=== PATIENT | male | born 1955 | race Two or more races ===

== ENCOUNTER 2021-11-29 23:21 | Inpatient (IN) | payer MEDICARE, OTHER ==
[~2021-11-29] VITALS: Ht 172.7 cm; Wt 72.6 kg
[2021-11-30 03:00] VITALS: BP 133/79
--- NOTE | 2021-11-30 03:00 | NUR ---
RN NOTE ADMITTED A 66 YEAR OLD MALE, LATERAL TRANSFER FROM [facility]. PATIENT ARRIVED VIA GURNEY. PATIENT IS ALERT AND ORIENTED X1, KNOWS ONLY NAME. BREATHING EVEN AND UNLABORED. TOLERATING ROOM AIR. NO SOB NOTED. NO COUGH/CONGESTION. DENIES CHEST PAIN. SKIN WARM AND DRY. NOTED WITH LEFT EYE ENUCLEATION. NOTED WITH LEFT AC PERIPHERAL IV 20 G. PATENT, NO INFILTRATION NOTED. SKIN ASSESSMENT DONE. PHOTOS TAKEN AND PLACED IN CHART. BED LOW, IN LOCKED POSITION. CALL LIGHT WITHIN REACH.
[2021-11-30] MEDS ORDERED: ONDANSETRON HCL/PF 4 MG/2 ML VIAL IVP PRN (04:30)
[2021-11-30] MEDS ORDERED: hydrALAZINE HCL IV 20 MG VIAL IV PRN (04:30)
[2021-11-30] MEDS ORDERED: ACETAMINOPHEN 325 MG TABLET PO PRN (04:30)
[2021-11-30] MEDS ORDERED: MAG HYDROX/AL HYDROX/SIMETH 30 ML UDC PO PRN (04:30)
[2021-11-30] MEDS ORDERED: MAGNESIUM HYDROXIDE 30 ML UDC PO PRN (04:30)
[2021-11-30] MEDS ORDERED: LORAZEPAM INJ 2 MG/ML VIAL IV PRN (04:30)
[2021-11-30] MEDS ORDERED: IV NS 0.9% 1,000 ML IV PRN (04:30)
[2021-11-30] MEDS ORDERED: Z GUARD REMEDY 4 OZ OINT TP PRN (04:30)
[2021-11-30 05:22] LABS: BASOPHILS # (AUTO) 0.1 K/uL (0.0-0.2); BASOPHILS % (AUTO) 0.5 % (0.0-2.0); EOSINOPHILS % (AUTO) 0.3 % (0.0-6.0); HEMATOCRIT 37 % (39-51); HEMOGLOBIN 12.6 g/dL (13.5-17.5); LYMPHOCYTES # (AUTO) 0.9 K/uL (0.8-4.8); LYMPHOCYTES % (AUTO) 8.4 % (20.0-44.0); MEAN CORPUSCULAR HGB CONC 34 g/dl (31.0-36.0); MEAN CORPUSCULAR VOLUME 94 fL (80-96); MONOCYTES # (AUTO) 0.3 K/uL (0.1-1.30); MONOCYTES % (AUTO) 2.9 % (2.0-12.0); NEUTROPHILS % (AUTO) 87.9 % (43.0-81.0); PLATELET COUNT (AUTO) 246 K/uL (150-450); RED BLOOD CELL COUNT(AUTO) 3.98 MIL/uL (4.5-6.0); WHITE BLOOD COUNT (AUTO) 10.2 K/uL (4.3-11.0)
[2021-11-30 06:06] LABS: ALANINE AMINOTRANSFERASE 40 U/L (12-78); ALBUMIN 4.2 g/dL (3.4-5.0); ALKALINE PHOSPHATASE 52 U/L (46-116); ASPARTATE AMINOTRANSFERASE 71 U/L (15-37); BILIRUBIN,TOTAL 1.3 mg/dL (0.2-1.0); CALCIUM, SERUM 9.1 mg/dL (8.5-10.1); CARBON DIOXIDE 28 mmol/L (21-32); CHLORIDE 100 mmol/L (98-107); CREATININE 1.6 mg/dL (0.6-1.3); GLUCOSE 156 mg/dL (74-106); MAGNESIUM 2.4 mg/dL (1.8-2.4); PHOSPHORUS 2.7 mg/dL (2.5-4.9); POTASSIUM 3.2 mmol/L (3.5-5.1); SODIUM SERUM 137 mmol/L (136-145); TOTAL PROTEIN, SERUM 7.8 g/dL (6.4-8.2); UREA NITROGEN, BLOOD 20 mg/dL (7-18)
[2021-11-30 06:14] LABS: THYROID STIMULATING HORMONE 236.957 uIU/mL (0.358-3.74)
[2021-11-30 06:18] LABS: CREATINE KINASE, TOTAL > 1000 U/L (39-308)
[2021-11-30] MEDS ORDERED: LEVETIRACETAM (500MG) 500 MG/5 ML VIAL IV ONE (06:26)
[2021-11-30] MEDS: LEVETIRACETAM (500MG) 500 MG in IV NS 0.9% 100 ML IV SCH ×2 (06:37→20:47)
--- NOTE | 2021-11-30 06:50 | NUR ---
RN NOTE TRANSFER REPORT GIVEN TO MICHAELA MEDLEY. PATIENT GOING TO ROOM 315-1. PATIENT TRANSFERRED, ACLS PROTOCOL OBSERVED.
[2021-11-30 08:00] VITALS: BP 127/85
[2021-11-30] MEDS ORDERED: LEVE250T4 PO (08:02)
[2021-11-30] MEDS ORDERED: CARV12.52 PO (08:02)
[2021-11-30] MEDS ORDERED: ASPI-1498 PO (08:02)
[2021-11-30] MEDS ORDERED: ATOR40TA PO (08:02)
[2021-11-30] MEDS ORDERED: LEVO125T8 PO (08:02)
[2021-11-30] MEDS ORDERED: LOSA100T31 PO (08:02)
[2021-11-30] MEDS ORDERED: LEVETIRACETAM (500MG) 500 MG in IV NS 0.9% 100 ML IV SCH (09:00)
[2021-11-30] MEDS: PANTOPRAZOLE 40 MG VIAL IV SCH (11:29)
[2021-11-30] MEDS: HEPARIN SODIUM, PORCINE 5000 UNITS/1 ML VIAL SQ SCH ×2 (11:30→20:57)
[2021-11-30] MEDS: POTASSIUM CL. PREMIX PERIPHER. 50 ML IV SCH ×3 (11:31→14:57)
[2021-11-30 12:00] VITALS: BP 131/94
[2021-11-30 16:00] VITALS: BP 133/98
[2021-11-30] MEDS: IV D5/0.45 NACL 1,000 ML IV SCH (17:32)
--- NOTE | 2021-11-30 18:00 | NUR ---
ALERT AND ORIENTED X4.SKIN WARM AND DRY.REORIENTED SEVERAL TIMES,YELLS OUT.AT ONE POINT ASSISTED TO BATHRM. THEN GETTING PT. BACK TO BED REFUSING RE-APPLICATION OF WRIST RESTRAINTS.RN CALLED SECURITY PT. LASHING AT NURSE.FAMILY CALLING EARLIER STATING PT. WITH HX OF DRUG ABUSE.DR. JEFF INFORMED.DUE TO YELLING TRANSFERRED TO ANOTHER R.309-1.POTASSIUM IV REPLACEMENT GIVENK LEVEL 3.2.
[2021-11-30 19:00] VITALS: BP 134/93
--- NOTE | 2021-11-30 19:30 | NUR ---
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
[2021-11-30 20:00] VITALS: BP 134/93
--- NOTE | 2021-11-30 20:30 | NUR ---
ICT SYSTEMS TEST ENGINEER NOTES GOT OUT OF BED,ASSISTED TO THE TOILET.DAUGHTER AT BEDSIDE.
--- NOTE | 2021-11-30 21:00 | NUR ---
LEAD PHP DEVELOPER NOTES DUE HEBER ROGERS,INFUSING VIA IV PUMP ON LEFT AC.
[2021-12-01] VITALS: BP 131/85
[2021-12-01 00:05] VITALS: BP 131/85
--- NOTE | 2021-12-01 01:00 | NUR ---
HAZMAT TRUCK DRIVER NOTES SLEEPING THIS TIME,KEPT WARM AND COMFORTABLE.
[2021-12-01] MEDS: IV D5/0.45 NACL 1,000 ML IV SCH ×3 (03:41→17:19)
[2021-12-01 04:00] VITALS: BP 150/97
--- NOTE | 2021-12-01 06:36 | NUR ---
ELASTIC ATTACHER ZIGZAG NOTES LAYING COMFORTABLY ON BED,CALM AND QUIET,COOPERATIVE AND THANKFUL FOR NURSE CARE.IVF INFUSING WELL ON LEFT AC SALINE LOCK,RESTRAINTS IN USED FOR SAFETY.ALL DUE MEDS ADMINISTERED,NO SEIZURE ACTIVITY NOTED,SIDE RAILS PADDED TO PREVENT INJURY,CALL LIGHT IN REACH,NEEDS ATTENDED.
--- NOTE | 2021-12-01 07:30 | NUR ---
INFUSION PHARMACIST NOTES RECEIVED ON BED AWAKE, A/O X1-2,WITH EPISODE OF CONFUSION,BREATHING EVEN AND UNLABORED, IV ACCESS ON LAC G#22 ON IVF D5 1/2 NS AT 125ML/HR RATE. SR-86 ON TELE MONITOR. 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 SAFETY AND FALL PRECAUTION OBSERVED,BED ON LOWEST POSITION AND LOCKED. BED ALARM TRIGGERED.CALL LIGHT IN REACH, WILL CONTINUE TO MONITOR ACCORDINGLY.
[2021-12-01 08:00] VITALS: BP 159/105
[2021-12-01] MEDS: PANTOPRAZOLE 40 MG VIAL IV SCH (08:34)
[2021-12-01] MEDS: HEPARIN SODIUM, PORCINE 5000 UNITS/1 ML VIAL SQ SCH ×2 (08:35→21:19)
[2021-12-01 09:33] LABS: BASOPHILS % (AUTO) 0.8 % (0.0-2.0); EOSINOPHILS % (AUTO) 2.1 % (0.0-6.0); HEMATOCRIT 36 % (39-51); LYMPHOCYTES # (AUTO) 1.2 K/uL (0.8-4.8); LYMPHOCYTES % (AUTO) 20.9 % (20.0-44.0); MEAN CORPUSCULAR HGB CONC 33 g/dl (31.0-36.0); MEAN CORPUSCULAR VOLUME 95 fL (80-96); MONOCYTES # (AUTO) 0.3 K/uL (0.1-1.30); MONOCYTES % (AUTO) 4.7 % (2.0-12.0); NEUTROPHILS # (AUTO) 4.1 K/uL (1.8-8.9); NEUTROPHILS % (AUTO) 71.5 % (43.0-81.0); PLATELET COUNT (AUTO) 223 K/uL (150-450); RED BLOOD CELL COUNT(AUTO) 3.77 MIL/uL (4.5-6.0); WHITE BLOOD COUNT (AUTO) 5.7 K/uL (4.3-11.0)
[2021-12-01] MEDS: LEVETIRACETAM (500MG) 500 MG in IV NS 0.9% 100 ML IV SCH (10:10)
[2021-12-01 11:06] LABS: CALCIUM, SERUM 8.7 mg/dL (8.5-10.1); CREATININE 1.7 mg/dL (0.6-1.3); MAGNESIUM 2.4 mg/dL (1.8-2.4); PHOSPHORUS 3.1 mg/dL (2.5-4.9); POTASSIUM 3.6 mmol/L (3.5-5.1)
--- NOTE | 2021-12-01 12:07 | NUR ---
RN NOTES PATIENT IS REFUSING BLOOD PRESSURE TO BE TAKEN, REFUSING LUNCH, REFUSING TELE MONITOR PLACEMENT. DAUGHTER UPDATED AND MD MADE AWARE.
[2021-12-01 15:41] LABS: BILIRUBIN,URINE NEGATIVE (NEGATIVE); COLOR,URINE YELLOW (YELLOW); LEUKOCYTE ESTERASE ,URINE NEGATIVE (NEGATIVE); NITRITE, URINE NEGATIVE (NEGATIVE); PROTEIN,URINE NEGATIVE (NEGATIVE); UGLUCOSE NEGATIVE (NEGATIVE); UROBILINOGEN,URINE 0.2 EU/dL (0.2)
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
--- NOTE | 2021-12-01 18:14 | NUR ---
RN NOTES PATIENT PULLED OUT IV ACCESS. REFUSED REINSERTION. MADE AWARE.
--- NOTE | 2021-12-01 18:33 | NUR ---
CYBER INTEL PLANNER CLOSING NOTES PATIENT IN BED AWAKE, A/O X1-2,WITH EPISODE OF CONFUSION AND AGITATION, CURSING AT STAFF. BREATHING EVEN AND UNLABORED, NO IV ACCESS AT THIS TIME, MAD AWARE. 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 PATIENT HAS A SITTER. SAFETY AND FALL PRECAUTION OBSERVED,BED ON LOWEST POSITION AND LOCKED. BED ALARM TRIGGERED.CALL LIGHT IN REACH. ALL NEEDS ATTENDED AND MET, DUE MEDS GIVEN ORDERED. WILL ENDORSE TO ONCOMING SHIFT FOR BRITTANY.
[2021-12-01 20:00] VITALS: BP 132/94
--- NOTE | 2021-12-01 20:00 | NUR ---
CAR BODY INSPECTOR NOTES RECEIVED ON BED A/O X1-2,WITH EPISODE OF CONFUSION,NO RESTRAINTS,SITTER AT BEDSIDE.NO IV ACCES,REFUSED TO HAVE A NEW SALINE LOCK, AWARE.TELE MONITOR REFUSED.SIDE RAILS PADDED FOR SEIZURE PRECAUTION,PREVENT INJURY.ABLE TO REPOSITION SELF.WILL CONTINUE TO MONITOR STATUS.
[2021-12-01] MEDS: LEVETIRACETAM (250 MG) 250 MG TABLET PO SCH (21:18)
--- NOTE | 2021-12-01 21:30 | NUR ---
PIG FARMER NOTES DUE PO KEPPRA 1000MG GIVEN,TAKEN WELL.
[2021-12-02] MEDS: IV D5/0.45 NACL 1,000 ML IV SCH ×3 (00:30→16:15)
--- NOTE | 2021-12-02 06:41 | NUR ---
VIBRATORY PILE DRIVER NOTES CALM AND QUIET THRU OUT SHIFT,SITTER AT BEDSIDE.NO DISTRESS.
[2021-12-02 06:50] LABS: BASOPHILS # (AUTO) 0.1 K/uL (0.0-0.2); BASOPHILS % (AUTO) 1.1 % (0.0-2.0); EOSINOPHILS % (AUTO) 2.9 % (0.0-6.0); HEMATOCRIT 33 % (39-51); HEMOGLOBIN 11.4 g/dL (13.5-17.5); LYMPHOCYTES # (AUTO) 1.2 K/uL (0.8-4.8); LYMPHOCYTES % (AUTO) 21.5 % (20.0-44.0); MEAN CORPUSCULAR HGB CONC 34 g/dl (31.0-36.0); MEAN CORPUSCULAR VOLUME 94 fL (80-96); MONOCYTES # (AUTO) 0.3 K/uL (0.1-1.30); MONOCYTES % (AUTO) 5.2 % (2.0-12.0); NEUTROPHILS # (AUTO) 3.9 K/uL (1.8-8.9); NEUTROPHILS % (AUTO) 69.3 % (43.0-81.0); PLATELET COUNT (AUTO) 227 K/uL (150-450); RED BLOOD CELL COUNT(AUTO) 3.54 MIL/uL (4.5-6.0); WHITE BLOOD COUNT (AUTO) 5.7 K/uL (4.3-11.0)
--- NOTE | 2021-12-02 07:00 | NUR ---
CHILD PROTECTIVE SERVICES SOCIAL WORKER NOTES RECEIVED PATIENT IN BED A/O X 3, NO AGITATION NOTED. PT TOLERATING WELL ON ROOM AIR WITH NO S/S OF DISTRESS AT THIS TIME. SAFETY MEASURES IN PLACE: BED IN LOWEST LOCKED POSITION, SIDE RAILS UP X 2, CALL LIGHT WITHIN REACH. SIDE RAILS PADDED FOR SEIZURE PRECAUTIONS. WILL CONTINUE TO MONITOR.
[2021-12-02 07:07] LABS: CREATININE 1.7 mg/dL (0.6-1.3); MAGNESIUM 2.5 mg/dL (1.8-2.4); PHOSPHORUS 2.9 mg/dL (2.5-4.9); POTASSIUM 3.4 mmol/L (3.5-5.1)
[2021-12-02] MEDS: PANTOPRAZOLE 40 MG TABLET.DR PO SCH (07:41)
[2021-12-02 08:00] VITALS: BP 151/87
[2021-12-02] MEDS ORDERED: LEVETIRACETAM (250 MG) 250 MG TABLET PO SCH (09:00)
[2021-12-02] MEDS: LEVETIRACETAM (250 MG) 250 MG TABLET PO SCH ×2 (09:14→20:27)
[2021-12-02] MEDS: HEPARIN SODIUM, PORCINE 5000 UNITS/1 ML VIAL SQ SCH ×2 (09:16→20:30)
[2021-12-02] MEDS ORDERED: POTASSIUM CHLORIDE 10 MEQ TABLET.SA PO ONE (09:30)
--- NOTE | 2021-12-02 09:33 | NUR ---
RN NOTES PT WITH LOW LEVEL POTASSIUM 3.4 TODAY. ADMINISTERED K-DUR 10MEQ PO ORDERED.
--- NOTE | 2021-12-02 15:23 | NUR ---
RN NOTES ASKED PT IF HE RECEIVED FLU AND PNA VACCINES, HE STATED THAT HE RECEIVED THEM BUT FORGOT THE DATES.
[2021-12-02 16:00] VITALS: BP 152/89
--- NOTE | 2021-12-02 18:25 | NUR ---
312-1 MS CLOSING NOTES PATIENT IN BED A/O X 3, NO AGITATION NOTED. PT TOLERATING WELL ON ROOM AIR WITH NO S/S OF DISTRESS AT THIS TIME. L FOREARM [address] WITH D5 1/2 NS INFUSING AT 125 ML/HR. SAFETY MEASURES IN PLACE: BED IN LOWEST LOCKED POSITION, SIDE RAILS UP X 2, CALL LIGHT WITHIN REACH. SIDE RAILS PADDED FOR SEIZURE PRECAUTIONS. SITTER AT BEDSIDE. WILL ENDORSE TO PROOF READER FOR BRITTANY.
--- NOTE | 2021-12-02 19:12 | NUR ---
MS RN OPENING NOTE PATIENT RECEIVED AWAKE IN BED. A/OX3. NO S/S OF DISTRESS, BREATHING SYMMETRICAL, ON ROOM AIR. LFA #20 INTACT AND PATENT W/ D5-1/2NS @125ML/HR. SITTER PRESENT. SAFETY MEASURES IN PLACE: BED AT LOWEST POSITION, RAILS UP X2, CALL SAVAGE WITHIN REACH. WILL CONTINUE TO MONITOR PATIENT.
[2021-12-02 20:00] VITALS: BP 109/59
--- NOTE | 2021-12-02 22:29 | NUR ---
LOADING DOCK HELPER NOTE BEING FLOATED TO SUBACUTE, AND HAVE TRANSFERRED PATIENT TO MICHAELA CARLSON, FOR BRITTANY.
--- NOTE | 2021-12-02 22:49 | NUR ---
REPORTS RECEIVED FROM MICHAELA NEWMAN FOR BRITTANY, CHECKED PATIENT, ASLEEP, WITH SITTER AT THE BEDSIDE.
[2021-12-03] MEDS: IV D5/0.45 NACL 1,000 ML IV SCH ×3 (00:19→16:40)
[2021-12-03 06:19] LABS: BASOPHILS # (AUTO) 0.1 K/uL (0.0-0.2); BASOPHILS % (AUTO) 1.3 % (0.0-2.0); EOSINOPHILS % (AUTO) 2.7 % (0.0-6.0); HEMATOCRIT 32 % (39-51); LYMPHOCYTES # (AUTO) 1.4 K/uL (0.8-4.8); LYMPHOCYTES % (AUTO) 27.2 % (20.0-44.0); MEAN CORPUSCULAR HGB CONC 34 g/dl (31.0-36.0); MEAN CORPUSCULAR VOLUME 94 fL (80-96); MONOCYTES # (AUTO) 0.3 K/uL (0.1-1.30); MONOCYTES % (AUTO) 4.9 % (2.0-12.0); NEUTROPHILS # (AUTO) 3.3 K/uL (1.8-8.9); NEUTROPHILS % (AUTO) 63.9 % (43.0-81.0); PLATELET COUNT (AUTO) 225 K/uL (150-450); RED BLOOD CELL COUNT(AUTO) 3.41 MIL/uL (4.5-6.0); WHITE BLOOD COUNT (AUTO) 5.2 K/uL (4.3-11.0)
[2021-12-03 07:52] LABS: CALCIUM, SERUM 8.4 mg/dL (8.5-10.1); CREATININE 1.7 mg/dL (0.6-1.3); MAGNESIUM 2.3 mg/dL (1.8-2.4); POTASSIUM 3.4 mmol/L (3.5-5.1)
--- NOTE | 2021-12-03 07:58 | NUR ---
RN OPENING NOTE RECEIVED PATIENT IN BED, AO X 3, IN NO ACUTE DISTRESS AT THIS TIME. RESPIRATORY EVEN AND UNLABORED SATURATION 96% ON ROOM AIR. SKIN IS WARM TO TOUCH, KEEP CLEAN/DRY, INTACT IV AND FLUSHING WELL. SAFETY MEASURES IMPLEMENTED. SITTER AT BEDSIDE, PATIENT BED ALARM IS ON. HEAD OF BED ELEVATED. BED IS LOCKED, IN LOWEST POSITION AND SIDE RAILS UP. CALL LIGHT WITHIN REACH OF THE PATIENT. WILL CONTINUE TO MONITOR AND REASSESS FOR ANY CHANGES.
[2021-12-03] MEDS: LEVETIRACETAM (250 MG) 250 MG TABLET PO SCH ×2 (08:41→21:29)
[2021-12-03] MEDS: PANTOPRAZOLE 40 MG TABLET.DR PO SCH (08:41)
[2021-12-03] MEDS: HEPARIN SODIUM, PORCINE 5000 UNITS/1 ML VIAL SQ SCH ×2 (08:42→21:30)
[2021-12-03] MEDS ORDERED: POTASSIUM CL. PREMIX PERIPHER. 50 ML IV ONE (11:00)
--- NOTE | 2021-12-03 18:00 | NUR ---
RN CLOSING NOTE PATIENT IN BED, ABLE TO RESPONDS ALL STIMULI. IN NO ACUTE DISTRESS OBSERVED. RESPIRATORY EVEN AND UNLABORED ON ROOM AIR, NO SOB. SKIN IS WARM TO TOUCH, KEEP CLEAN/DRY, INTACT IV SITE. RUNNING D5 1/2 NS AT 125ML/HR. KEPT REMAINS ELEVATED HOB FOR ENSURE AIRWAY AND ASPIRATION PRECAUTION, ALSO LOWEST POSITION OF THE BED FOR SAFETY. CALL LIGHT WITHIN REACH, ALL NEED MET. WILL ENDORSE SOCIAL MEDIA MANAGER.
--- NOTE | 2021-12-03 19:54 | NUR ---
MS RN OPENING NOTE PATIENT RECEIVED ASLEEP IN BED. A/OX3. NO S/S OF DISTRESS, BREATHING SYMMETRICAL ON ROOM AIR. LFA #20 INTACT AND PATENT. SAFETY MEASURES IN PLACE: BED AT LOWEST POSITION, RAILS UP X2, CALL SAVAGE WITHIN REACH. WILL CONTINUE TO MONITOR PATIENT.
[2021-12-04] MEDS: IV D5/0.45 NACL 1,000 ML IV SCH ×2 (00:36→07:37)
--- NOTE | 2021-12-04 06:27 | NUR ---
MS RN CLOSING NOTE PATIENT IS AWAKE IN BED. A/OX3. NO S/S OF DISTRESS, BREATHING UNLABORED ON ROOM AIR. LFA #20 INTACT AND PATENT W/ D5-1/2NS @ 125ML/HR. SAFETY MEASURES IN PLACE: BED AT LOWEST POSITION, RAILS UP X3, CALL SAVAGE WITHIN REACH. WILL ENDORSE TO FOLLOWING SHIFT FOR BRITTANY.
--- NOTE | 2021-12-04 07:00 | NUR ---
MS RN OPENING NOTES PATIENT AWAKE IN BED, A/OX3. NO S/S OF DISTRESS, BREATHING UNLABORED ON ROOM AIR. LFA #20 INTACT AND PATENT W/ D5-1/2NS @ 125ML/HR. SAFETY MEASURES IN PLACE: BED IN LOWEST POSITION, RAILS UP X3, CALL SAVAGE WITHIN REACH. WILL CONTINUE TO MONITOR.
[2021-12-04] MEDS: PANTOPRAZOLE 40 MG TABLET.DR PO SCH (07:37)
[2021-12-04] MEDS: LEVETIRACETAM (250 MG) 250 MG TABLET PO SCH (08:19)
[2021-12-04] MEDS: HEPARIN SODIUM, PORCINE 5000 UNITS/1 ML VIAL SQ SCH (08:19)
[2021-12-04 08:25] VITALS: BP 159/104
[2021-12-04 10:24] LABS: CALCIUM, SERUM 8.9 mg/dL (8.5-10.1); CREATININE 1.4 mg/dL (0.6-1.3); POTASSIUM 3.3 mmol/L (3.5-5.1)
[2021-12-04] MEDS ORDERED: POTASSIUM CHLORIDE 20 MEQ TAB.PRT.SR PO ONE (11:00)
[2021-12-04] MEDS ORDERED: LEVE1000 PO (13:08)
--- NOTE | 2021-12-04 13:50 | NUR ---
MS HEATING UNIT INSTALLER NOTES PATIENT A/O X 4 AND STABLE. PATIENT AWARE OF MD DISCHARGE INSTRUCTIONS AND HOME MEDICATIONS LIST, DISCHARGE INSTRUCTIONS AND MEDICATIONS EXPLAINED TO PATIENT AND FORM SIGNED. PATIENT CONFIRMED POSSESSION OF BELONGINGS AND SIGNED BELONGINGS LIST. INSTRUCTED PATIENT TO CONTINUE HOME MEDICATIONS AND FOLLOW UP WITH PCP AND NEUROLOGIST IN 1 WEEK. IV AND ID BANDS REMOVED. PATIENT TRANSFERRED FROM UNIT BY GILLIAN LOZANO TO [facility] AND ALL CARE TRANSFERRED TO PEARL GAUTHIER.
== END 2021-12-04 13:50 | disposition home or self-care (01) | DRG 100 ==
LOC: TELE1 11-30 02:34 → TELE 11-30 06:46 → MED 12-02 08:38
PROVIDERS: ADMIT Student in an Organized Health Care Education/Training Program; ATTEND Student in an Organized Health Care Education/Training Program
DX: G40.909 Epilepsy, unspecified, not intractable, without status epilepticus (principal); N17.0 Acute kidney failure with tubular necrosis; M62.82 Rhabdomyolysis; I10 Essential (primary) hypertension; E87.6 Hypokalemia; D64.9 Anemia, unspecified; E03.9 Hypothyroidism, unspecified; G93.89 Other specified disorders of brain; Z87.820 Personal history of traumatic brain injury; R94.6 Abnormal results of thyroid function studies
CPT/HCPCS: 36415; 80048-TC; 80053-TC; 80177; 82550-TC; 82553; 83735-TC; 84100-TC; 84439-TC; 84443-TC; 85025-TC; 87081-TC; 92526; 97116-TC; 97530-TC; C9113; G0378; J1644; J1953; J3480; J3490; J7030; J7042

== ENCOUNTER 2024-03-10 15:21 | Emergency (ER) | payer MEDICARE, OTHER ==
[~2024-03-10] VITALS: Ht 165.1 cm; Wt 68.5 kg
[~2024-03-10 15:21] MED LIST: ASPI-1498 PO; ATOR40TA PO; CARV12.52 PO; LEVE1000 PO; LEVO125T8 PO
[2024-03-10] MEDS ORDERED: LIDOCAINE 0.5%-EPI 1:200,000 50 ML VIAL ONE (18:37)
[2024-03-10] MEDS ORDERED: ACETAMINOPHEN ES 500 MG TABLET ONE (19:04)
[2024-03-10] MEDS: ACETAMINOPHEN ES 500 MG TABLET PO ONE (19:07)
[2024-03-11 00:13] VITALS: BP 148/78; TEMP 98.5; O2SAT 99
== END 2024-03-11 00:05 | disposition home health service (06) ==
LOC: ER 15:51
DX: S01.112A Laceration without foreign body of left eyelid and periocular area, initial encounter (principal); R51.9 Headache, unspecified; Z79.899 Other long term (current) drug therapy; W18.39XA Other fall on same level, initial encounter; Y93.89 Activity, other specified; Y92.89 Other specified places as the place of occurrence of the external cause; Y99.8 Other external cause status
CPT/HCPCS: 12011; 70450; 70486; 72125; 73090; 73110; 73564; 99285; A6403; J3490

== ENCOUNTER 2025-03-17 13:01 | Inpatient (IN) | payer MEDICARE, OTHER ==
[~2025-03-17] VITALS: Ht 167.6 cm; Wt 70.3 kg
[2025-03-17] MEDS ORDERED: VANCOMYCIN 1 GM in IV D5W 250 ML IV ONE (13:30)
[2025-03-17] MEDS: IV NS 0.9% 1,000 ML BAG IV ONE (13:30)
[2025-03-17 13:57] LABS: BASOPHILS # (AUTO) 0.1 K/uL (0.0-0.2); EOSINOPHILS # (AUTO) 0.5 K/uL (0.0-0.7); EOSINOPHILS % (AUTO) 4.7 % (0.0-6.0); HEMATOCRIT 34 % (39-51); HEMOGLOBIN 11.2 g/dL (13.5-17.5); LYMPHOCYTES # (AUTO) 0.9 K/uL (0.8-4.8); LYMPHOCYTES % (AUTO) 8.7 % (20.0-44.0); MEAN CORPUSCULAR HEMOGLOBIN 31 PG (26.0-33.0); MEAN CORPUSCULAR HGB CONC 33 g/dl (31.0-36.0); MEAN CORPUSCULAR VOLUME 92 fL (80-96); MONOCYTES # (AUTO) 0.9 K/uL (0.1-1.30); MONOCYTES % (AUTO) 8.7 % (2.0-12.0); NEUTROPHILS # (AUTO) 7.8 K/uL (1.8-8.9); NEUTROPHILS % (AUTO) 76.9 % (43.0-81.0); PLATELET COUNT (AUTO) 356 K/uL (150-450); RED BLOOD CELL COUNT(AUTO) 3.63 MIL/uL (4.5-6.0); RED CELL DISTRIBUTION WIDTH 12.9 % (11.5-15.0); WHITE BLOOD COUNT (AUTO) 10.1 K/uL (4.3-11.0)
[2025-03-17] MEDS ORDERED: Z GUARD REMEDY 4 OZ OINT TP PRN (14:00)
[2025-03-17] MEDS ORDERED: ONDANSETRON HCL/PF 4 MG/2 ML VIAL IVP PRN (14:00)
[2025-03-17] MEDS ORDERED: MAGNESIUM HYDROXIDE 30 ML UDC PO PRN (14:00)
[2025-03-17] MEDS ORDERED: MAG HYDROX/AL HYDROX/SIMETH 30 ML UDC PO PRN (14:00)
[2025-03-17 14:14] LABS: ALBUMIN 2.9 g/dL (3.4-5.0); BILIRUBIN,TOTAL 0.6 mg/dL (0.2-1.0); CALCIUM, SERUM 9.4 mg/dL (8.5-10.1); CREATININE 0.9 mg/dL (0.6-1.3); POTASSIUM 5.2 mmol/L (3.5-5.1); TOTAL PROTEIN, SERUM 8.3 g/dL (6.4-8.2)
[2025-03-17 14:16] LABS: LACTIC ACID 1.5 mmol/L (0.4-2.0)
[2025-03-17] MEDS: CEFEPIME 1 GM in IV D5W 50 ML IV ONE (14:20)
[2025-03-17] MEDS ORDERED: TAMS-12 PO (14:52)
[2025-03-17] MEDS ORDERED: LORA10TA7 PO (14:52)
[2025-03-17] MEDS ORDERED: LEVO150T8 PO (14:52)
[2025-03-17] MEDS ORDERED: LOSA25TA27 PO (14:52)
[2025-03-17] MEDS ORDERED: METO25TA20 PO (14:52)
[2025-03-17] MEDS ORDERED: LEVE500T20 PO (14:52)
[2025-03-17] MEDS ORDERED: NALO0.4D4 NS (14:52)
[2025-03-17] MEDS ORDERED: IPRA0.2S49 NEB (14:52)
[2025-03-17] MEDS ORDERED: ALBU2.5V13 NEB (14:52)
[2025-03-17] MEDS ORDERED: FAMO20TA29 PO (14:52)
[2025-03-17] MEDS ORDERED: OLAN2.5T3 PO (14:52)
[2025-03-17] MEDS ORDERED: OXYC5TAB3 PO (14:52)
[2025-03-17] MEDS ORDERED: POLY17PO4 PO (14:52)
[2025-03-17] MEDS ORDERED: DIAZ5TAB4 PO (14:52)
[2025-03-17] MEDS ORDERED: ACET-73 PO (14:52)
[2025-03-17 14:58] LABS: INR 1.07 (0.91-1.10); PARTIAL THROMBOPLASTIN TIME 29.2 SEC (24.3-34.3)
[2025-03-17 15:13] LABS: BILIRUBIN,DIRECT 0.1 mg/dL (0.0-0.2)
[2025-03-17 15:45] VITALS: O2SAT 100
[2025-03-17] MEDS: VANCOMYCIN HCL 1.25 GM in IV D5W 250 ML IV ONE (15:46)
[2025-03-17 16:00] VITALS: BP 128/70; TEMP 98.1; O2SAT 97
[2025-03-17] MEDS ORDERED: ZOSYN IVPB 3.375 G in IV D5W 50ml IV ONE (16:00)
[2025-03-17] MEDS ORDERED: LEVETIRACETAM (250 MG) 250 MG TABLET PO SCH (17:00)
[2025-03-17] MEDS ORDERED: LORATADINE 10 MG TABLET PO PRN (17:30)
[2025-03-17] MEDS ORDERED: ALBUTEROL FS 2.5 MG/0.5 ML VIAL.NEB NEB PRN (17:30)
[2025-03-17] MEDS ORDERED: IPRATROPIUM NEB FS 0.5 MG/2.5 ML AMPUL.NEB NEB PRN (17:30)
[2025-03-17] MEDS: CARVEDILOL 12.5 MG TABLET PO SCH (17:51)
[2025-03-17] MEDS: ZOSYN IVPB 3.375 G in IV D5W 50ml IV SCH (18:54)
[2025-03-17 20:00] VITALS: BP 117/67; TEMP 98.2; O2SAT 96
[2025-03-17 20:24] LABS: APPEARANCE,URINE CLEAR (CLEAR); BILIRUBIN,URINE NEGATIVE (NEGATIVE); BLOOD, URINE NEGATIVE Ery/uL (NEGATIVE); COLOR,URINE YELLOW (YELLOW); KETONES,URINE NEGATIVE (NEGATIVE); LEUKOCYTE ESTERASE ,URINE NEGATIVE (NEGATIVE); NITRITE, URINE NEGATIVE (NEGATIVE); PROTEIN,URINE NEGATIVE (NEGATIVE); UGLUCOSE NEGATIVE (NEGATIVE); UROBILINOGEN,URINE 0.2 EU/dL (0.2)
[2025-03-17] MEDS: ATORVASTATIN 40 MG TABLET PO SCH (21:45)
[2025-03-17] MEDS: TAMSULOSIN 0.4 MG CAP.SR.24H PO SCH (21:45)
[2025-03-17] MEDS: ACETAMINOPHEN 325 MG TABLET PO PRN (22:05)
[2025-03-18] MEDS: VANCOMYCIN 750 MG in IV D5W 250 ML IV SCH (03:07)
[2025-03-18 07:00] VITALS: BP 99/64; TEMP 97.4; O2SAT 97
[2025-03-18 07:19] LABS: BASOPHILS # (AUTO) 0.1 K/uL (0.0-0.2); EOSINOPHILS # (AUTO) 0.6 K/uL (0.0-0.7); EOSINOPHILS % (AUTO) 7.9 % (0.0-6.0); HEMATOCRIT 32 % (39-51); HEMOGLOBIN 10.8 g/dL (13.5-17.5); LYMPHOCYTES # (AUTO) 1.1 K/uL (0.8-4.8); LYMPHOCYTES % (AUTO) 14.2 % (20.0-44.0); MEAN CORPUSCULAR HEMOGLOBIN 31 PG (26.0-33.0); MEAN CORPUSCULAR HGB CONC 34 g/dl (31.0-36.0); MEAN CORPUSCULAR VOLUME 92 fL (80-96); MONOCYTES # (AUTO) 0.7 K/uL (0.1-1.30); MONOCYTES % (AUTO) 9.1 % (2.0-12.0); NEUTROPHILS # (AUTO) 5.4 K/uL (1.8-8.9); NEUTROPHILS % (AUTO) 67.8 % (43.0-81.0); PLATELET COUNT (AUTO) 379 K/uL (150-450); RED BLOOD CELL COUNT(AUTO) 3.52 MIL/uL (4.5-6.0); RED CELL DISTRIBUTION WIDTH 13.1 % (11.5-15.0); WHITE BLOOD COUNT (AUTO) 7.9 K/uL (4.3-11.0)
[2025-03-18] MEDS ORDERED: LEVOTHYROXINE SODIUM 125 MCG TABLET PO SCH (07:30)
[2025-03-18] MEDS: LEVOTHYROXINE SODIUM 75 MCG TABLET PO SCH (07:51)
[2025-03-18 07:59] LABS: CALCIUM, SERUM 9.1 mg/dL (8.5-10.1); MAGNESIUM 2.2 mg/dL (1.8-2.4); PHOSPHORUS 3.4 mg/dL (2.5-4.9)
[2025-03-18] MEDS: FAMOTIDINE (20 MG) 20 MG TABLET PO SCH (08:23)
[2025-03-18] MEDS: METOPROLOL TARTRATE 25 MG TABLET PO SCH (08:23)
[2025-03-18] MEDS: POLYETHYLENE GLYCOL 3350 17 GM POWD.PACK PO SCH (08:23)
[2025-03-18] MEDS: LEVETIRACETAM (250 MG) 250 MG TABLET PO SCH (08:23)
[2025-03-18 20:00] VITALS: BP 113/57; TEMP 97.7; O2SAT 94
[2025-03-19 07:00] VITALS: BP 134/55; TEMP 98.6; O2SAT 97
[2025-03-19] MEDS: OLANZAPINE 2.5 MG TABLET PO SCH (08:14)
[2025-03-19 13:56] LABS: CALCIUM, SERUM 9.1 mg/dL (8.5-10.1); CREATININE 1.1 mg/dL (0.6-1.3); POTASSIUM 3.6 mmol/L (3.5-5.1)
[2025-03-19 16:00] VITALS: BP 116/58; TEMP 98.1; O2SAT 95
[2025-03-19 20:53] VITALS: BP 130/77; TEMP 98.1; O2SAT 100
[2025-03-19] MEDS ORDERED: CEFTRIAXONE 1GM BAG (ER ONLY) 50 ML IV ONE (22:47)
[2025-03-19] MEDS: CEFTRIAXONE 1 G in IV D5W 50 ML IV SCH (23:02)
[2025-03-20 07:30] VITALS: BP 115/58; TEMP 98.4; O2SAT 97
[2025-03-20 07:41] LABS: CALCIUM, SERUM 8.9 mg/dL (8.5-10.1); POTASSIUM 3.9 mmol/L (3.5-5.1)
[2025-03-20] MEDS ORDERED: CEFT1FRO2 IV (12:18)
[2025-03-20 16:00] VITALS: BP 122/74; TEMP 98.4; O2SAT 97
[2025-03-20 17:19] VITALS: BP 122/74
[2025-03-20] MEDS ORDERED: CEFTRIAXONE 1 G in IV D5W 50 ML IV SCH (21:00)
== END 2025-03-20 18:40 | DRG 603 ==
LOC: ER 13:08 → MED 14:15
PROVIDERS: ADMIT Nurse Practitioner Acute Care; ATTEND Nurse Practitioner Acute Care
PROC: 05HB33Z Insertion of Infusion Device into Right Basilic Vein, Percutaneous Approach (ICD-10-PCS; principal; 2025-03-19)
DX: L03.211 Cellulitis of face (principal); G93.40 Encephalopathy, unspecified; L03.213 Periorbital cellulitis; E87.5 Hyperkalemia; E11.9 Type 2 diabetes mellitus without complications; G40.909 Epilepsy, unspecified, not intractable, without status epilepticus; E03.9 Hypothyroidism, unspecified; Z79.899 Other long term (current) drug therapy; N40.0 Benign prostatic hyperplasia without lower urinary tract symptoms; Z87.820 Personal history of traumatic brain injury; I10 Essential (primary) hypertension; F41.9 Anxiety disorder, unspecified; Z79.890 Hormone replacement therapy; Z90.01 Acquired absence of eye; Z86.16 Personal history of COVID-19; Z79.82 Long term (current) use of aspirin
CPT/HCPCS: 36415; 71045-TC; 80048-TC; 80076-TC; 80202-TC; 83605-TC; 83735-TC; 84100-TC; 85025-TC; 85730-TC; 87040-TC; 87081-TC; 87086-TC; A4223; G0378; J0692; J0696; J2543; J3370; J3371; J7030; J7040; J7060